=== PATIENT | female | born 1940 | race Hispanic/Latino ===

== ENCOUNTER → 2025-06-21 | Day surgery (SDC) | payer MEDICARE ==
[2025-06-13 11:30] LABS: BASOPHILS % 0.4 % (0.0-1.0); EOSINOPHILS % 2.1 % (0.0-6.0); LYMPHOCYTES % 18.8 % (18.0-39.1); MONOCYTES % 5.3 % (4.4-11.3); NEUTROPHILS % 73.1 % (38.7-80.0); RED CELL DISTRIBUTION WIDTH 12.5 % (11.7-14.4)
[~2025-06-21] MED LIST: BREZTRI AEROS10.7 GM INH; DOXEPIN HCL25 MG PO; MIRTAZAPINE15 MG PO; OLMESARTAN-HCT1 EACH PO; OMEPRAZOLE40 MG PO; PRAVASTATIN SOD40 MG PO; PROPOFOL IV EMULSION 10 MG/ML 20 ML VIAL ONE; QUETIAPINE FUMA25 MG PO; TRELEGY ELLIPT1 EACH INH; ZEBETA10 MG PO
[2025-06-21] MEDS: LACTATED RINGER'S 1,000 ML ONE (08:52)
[2025-06-21 10:10] VITALS: TEMP 97.2
[2025-06-21 10:40] VITALS: BP 142/78; PULSE 63; RESP 16; O2SAT 100
== END | disposition home or self-care (01) ==
LOC: OR 06:16
PROVIDERS: ATTEND Internal Medicine Gastroenterology
DX: R10.32 Left lower quadrant pain (principal); K57.30 Diverticulosis of large intestine without perforation or abscess without bleeding; K64.8 Other hemorrhoids; I10 Essential (primary) hypertension; E78.5 Hyperlipidemia, unspecified; J45.909 Unspecified asthma, uncomplicated; M06.9 Rheumatoid arthritis, unspecified; F32.A Depression, unspecified; Z01.810 Encounter for preprocedural cardiovascular examination; Z01.812 Encounter for preprocedural laboratory examination; Z79.899 Other long term (current) drug therapy
CPT/HCPCS: 36415; 45378; 85025; 93005; J2704; J7121